=== PATIENT | female | born 1945 | race Hispanic/Latino ===

== ENCOUNTER 2020-05-14 07:39 | Day surgery (SDC) | payer MEDICARE ==
[2020-05-14] MEDS ORDERED: ASPIRIN EC 325 MG TAB PO ONE (08:21)
[2020-05-14] MEDS ORDERED: SODIUM CHLORIDE 0.9% 500 ML 500 ML IV SCH (09:00)
[2020-05-14 09:21] LABS: Basophils # (Auto) 0.1 K/mm3 (0.0-0.1); Basophils % (Auto) 1.1 % (0.0-1.8); Eosinophils # (Auto) 0.4 K/mm3 (0.0-0.4); Eosinophils % (Auto) 4.9 % (0.0-4.3); Hematocrit 30.2 % (30.3-42.9); Hemoglobin 10.6 gm/dl (10.1-14.3); Lymphocytes # (Auto) 1.7 K/mm3 (1.2-5.4); Lymphocytes % (Auto) 22.7 % (13.4-35.0); Mean Corpuscular HGB Conc 35 % (30-34); Mean Corpuscular Volume 86 fl (79-97); Monocytes # (Auto) 0.6 K/mm3 (0.0-0.8); Monocytes % (Auto) 8.5 % (0.0-7.3); Platelet Count 139 K/mm3 (140-440); Red Blood Count 3.52 M/mm3 (3.65-5.03); Red Cell Distribution Width 14.1 % (13.2-15.2)
[2020-05-14 09:51] LABS: INR 1.06 (0.87-1.13)
[2020-05-14] MEDS ORDERED: HEPARIN/NS 5000 UNIT/500ML 1,000 ML IR ONE (09:51)
[2020-05-14] MEDS ORDERED: HEPARIN 10,000 UNITS/10 ML VIAL ONE (09:51)
[2020-05-14] MEDS ORDERED: LIDOCAINE (2%) 20 MG/1 ML VIAL 20 ML MDV INFILTRATI ONE (09:51)
[2020-05-14] MEDS ORDERED: VERAPAMIL 5 MG/2 ML INJ ONE (09:51)
[2020-05-14 10:13] LABS: Blood Urea Nitrogen 11 mg/dL (7-17); Calcium 9.1 mg/dL (8.4-10.2); Hemolysis Index 9
[2020-05-14 10:40] LABS: BUN/Creatinine Ratio 28
[2020-05-14] MEDS: fentaNYL 100 MCG/2 ML INJ ONE ×2 (12:18→12:20)
[2020-05-14] MEDS: MIDAZOLAM 2 MG/2 ML INJ ONE ×2 (12:18→12:20)
[2020-05-14] MEDS: NITROGLYCERIN SYRINGE 3 ML ONE ×2 (12:19→12:21)
--- NOTE | 2020-05-14 12:54 | Cardiac Catherization Report ---
CARDIAC CATHETERIZATION REPORT REASON FOR PROCEDURE: Preoperative assessment, abnormal thallium stress test. PROCEDURES: 1. Left heart catheterization. 2. Selective left and right coronary angiography. 3. Left ventricular angiography. 4. Sedation time, start 12:18, and 12:32. I was present for the entire procedure and supervised the moderate sedation protocol. DESCRIPTION OF PROCEDURE: The patient was prepped and draped in a sterile fashion after informed consent. The right radial cath site was prepped and draped after a negative Vito's test. The right radial artery was entered using Seldinger technique followed by placement of a 6-Yi hydrophilic sheath. Routine radial cocktail was administered via the sheath. Selective left and right coronary angiography was performed using a #3.5 left Santos, and a #4 right Santos. The right Santos was used for left ventricular angiography. The catheters were removed, sheath removed, and hemostasis achieved using a TR band. The patient was returned to the postprocedure unit in stable condition. There were no complications. FINDINGS: HEMODYNAMICS: Left ventricular end-diastolic pressure was 18, following coronary angiography. Ascending aortic pressure was 146/63. There was no significant pressure gradient on pullback across the aortic valve. CORONARY ANGIOGRAPHY: The left main coronary artery was free of significant disease. The left anterior descending artery contained mild luminal irregularities in its proximal segment. The mid segment was notable for sequential, 20-30% stenosis. Otherwise, mild luminal irregularities were noted in the remainder of the LAD and diagonal branches. The circumflex artery contained mild luminal irregularities in its proximal to mid AV groove segment. The right coronary artery was dominant, and contained mild luminal irregularities in its proximal and distal segments. There was normal left ventricular systolic function with ejection fraction of 55-60%. CONCLUSION: 1. Nonobstructive coronary atherosclerosis as above. 2. Normal left ventricular systolic function, ejection fraction of 55-60%. RECOMMENDATION: Risk factor modification and medical therapy. JOB# [id number] CA/NTS
[2020-05-14] MEDS ORDERED: traMADol 50 MG TAB PO PRN (13:06)
--- NOTE | 2020-05-14 13:08 | Discharge Summary ---
Short Stay Discharge Plan Activity: advance as tolerated Weight Bearing Status: Partial Weight Bearing Diet: low fat, low cholesterol, low salt Wound: keep clean and dry Special Instructions: no heavy lifting (3 days) Follow up with: SHERRI LAWSON MD [Primary Care Provider] - 7 Days ZENIA GAYTAN MD [Staff Physician] - 7 Days
[2020-05-14] MEDS ORDERED: SODIUM CHLORIDE 0.9% 1000 ML 1,000 ML IV SCH (13:15)
[2020-05-14 15:33] VITALS: BP 137/54
== END 2020-05-14 16:00 | disposition home or self-care (01) ==
LOC: CATHLABREC 07:39
PROVIDERS: ATTEND Internal Medicine Cardiovascular Disease
DX: R94.39 Abnormal result of other cardiovascular function study (principal); I25.10 Atherosclerotic heart disease of native coronary artery without angina pectoris; E11.51 Type 2 diabetes mellitus with diabetic peripheral angiopathy without gangrene; I10 Essential (primary) hypertension; M19.90 Unspecified osteoarthritis, unspecified site; Z98.890 Other specified postprocedural states; Z98.49 Cataract extraction status, unspecified eye; Z87.01 Personal history of pneumonia (recurrent); Z90.49 Acquired absence of other specified parts of digestive tract; Z87.442 Personal history of urinary calculi; Z87.440 Personal history of urinary (tract) infections; Z83.3 Family history of diabetes mellitus; Z82.49 Family history of ischemic heart disease and other diseases of the circulatory system
CPT/HCPCS: 36415; 80048; 85025; 85610; 85730; 93005; 93458; 99156; C1894; J1644; J2250; J3010; J7040; Q9967